=== PATIENT | female | born 1935 | race African-American/Black ===

== ENCOUNTER 2016-07-13 18:09 | Inpatient (IN) | payer MEDICARE, MEDICAID ==
[~2016-07-13] VITALS: Ht 157.5 cm; Wt 96.2 kg
[2016-07-13 18:55] LABS: BASOPHILS # (AUTO) 0.1 K/uL (0.0-0.2); BASOPHILS % (AUTO) 1.6 % (0.0-2.0); EOSINOPHILS # (AUTO) 0.1 K/uL (0.0-0.7); EOSINOPHILS % (AUTO) 2.5 % (0.0-7.0); HEMATOCRIT 36.2 % (37.0-47.0); HEMOGLOBIN 12.4 g/dL (12.0-16.0); LYMPHOCYTES # (AUTO) 1.4 K/uL (0.8-4.8); LYMPHOCYTES % (AUTO) 24.1 % (20.5-51.5); MEAN CORPUSCULAR HEMOGLOBIN 30.2 uug (27.0-31.0); MEAN CORPUSCULAR HGB CONC 34 g/dL (32.0-37.0); MEAN CORPUSCULAR VOLUME 88.2 fL (81.0-99.0); MONOCYTES # (AUTO) 0.3 K/uL (0.1-1.30); MONOCYTES % (AUTO) 5.8 % (0.0-11.0); PLATELET COUNT (AUTO) 235 K/uL (150-450); RED BLOOD CELL COUNT(AUTO) 4.11 MIL/uL (4.20-5.40); RED CELL DISTRIBUTION WIDTH 12.6 % (11.5-14.5); WHITE BLOOD COUNT (AUTO) 5.9 K/uL (4.0-11.2)
[2016-07-13] MEDS ORDERED: MELA3TAB PO (18:58)
[2016-07-13] MEDS ORDERED: LOSA25TA3 PO (18:58)
[2016-07-13] MEDS ORDERED: NITR0.4T SL (18:58)
[2016-07-13] MEDS ORDERED: DSS PO (18:58)
[2016-07-13] MEDS ORDERED: CALC500T13 PO (18:58)
[2016-07-13] MEDS ORDERED: ASPI81TA31 PO (18:58)
[2016-07-13] MEDS ORDERED: ACET325T53 PO (18:58)
[2016-07-13] MEDS ORDERED: MECL25TA3 PO (18:58)
[2016-07-13] MEDS ORDERED: GUAI474L3 PO (18:58)
[2016-07-13] MEDS ORDERED: FURO-151 PO (18:58)
[2016-07-13] MEDS ORDERED: TRAV5DRO OP (18:58)
[2016-07-13 19:04] LABS: *BILIRUBIN,URIN NEGATIVE (NEGATIVE); *BLOOD, URINE NEGATIVE (NEGATIVE); *CLARITY,URINE CLEAR (CLEAR); *COLOR,URINE LIGHT YELLOW (YELLOW); *KETONES,URINE NEGATIVE (NEGATIVE); *PROTEIN,URINE NEGATIVE (NEGATIVE); *UROBILINOGEN,URINE 0.2 E.U./dl (NORMAL); LEUKOCYTE ESTERASE ,URINE NEGATIVE (NEGATIVE); NITRITE, URINE NEGATIVE (NEGATIVE); UGLUCOSE NEGATIVE (NEGATIVE)
[2016-07-13 19:09] LABS: SQUAMOUS EPITHELIAL CELL,UR FEW /HPF (NONE SEEN); WBC,URINE 0-3 /HPF (0-3)
[2016-07-13 19:21] LABS: *AMPHETAMINE, URINE NEGATIVE (NEGATIVE); *BARBITURATE, URINE NEGATIVE (NEGATIVE); *CANNABINOID, URINE NEGATIVE (NEGATIVE); *COCCAINE, URINE NEGATIVE (NEGATIVE); *OPIATE, URINE NEGATIVE (NEGATIVE); *PHENCYCLIDINE SCREEN,URINE NEGATIVE (NEGATIVE)
[2016-07-13 19:28] LABS: ETHANOL < 3 MG/DL (0-0)
[2016-07-13 19:30] LABS: CALCIUM 9.6 mg/dL (8.5-10.1); CARBON DIOXIDE 32 mmol/L (21-32); CHLORIDE 102 mmol/L (98-107); CREATININE 1.1 mg/dL (0.6-1.3); GLUCOSE 99 mg/dL (74-106); POTASSIUM 5.1 mmol/L (3.5-5.1); SODIUM SERUM 139 mmol/L (136-145); UREA NITROGEN, BLOOD 21 mg/dL (7-18)
[2016-07-13 19:37] LABS: ALANINE AMINOTRANSFERASE 15 U/L (14-59); ALBUMIN 3.5 g/dL (3.4-5.0); ALKALINE PHOSPHATASE 108 U/L (50-136); ASPARTATE AMINOTRANSFERASE 18 U/L (15-37); BILIRUBIN,DIRECT 0.1 mg/dL (0.0-0.2); BILIRUBIN,TOTAL 0.3 mg/dL (0.2-1.0); TOTAL PROTEIN, SERUM 7.7 g/dL (6.4-8.2)
[2016-07-13 19:38] LABS: ACETAMINOPHEN < 2.0 ug/mL (10-30)
--- NOTE | 2016-07-13 20:48 | NUR ---
Pt. admitted to [facility], under care of Dr. Alvarenga Belongs List completed
[2016-07-13 21:05] VITALS: BP 135/53
[2016-07-13] MEDS ORDERED: MAG HYDROX/AL HYDROX/SIMETH 30 ML LIQUID UDC PO PRN (22:00)
[2016-07-13] MEDS ORDERED: MAGNESIUM HYDROXIDE 30 ML LIQUID UDC PO PRN (22:00)
[2016-07-13] MEDS ORDERED: LORAZEPAM 0.5 MG TABLET PO PRN (22:00)
[2016-07-13] MEDS ORDERED: TEMAZEPAM 7.5 MG CAPSULE ONE (22:22)
--- NOTE | 2016-07-13 23:00 | NUR ---
received to care, from the emergency room, on a 5150 for gravely disabled, resident of [facility], where she was reportedly paranoid of staff, believing that a nurse put "white powder" in her closet, that her water was tainted or poisoned, that a male nurse put his finger in her anus, that her daughter and grandaughter are trying to kill her. she has also been hoarding her belongings next to her, and suspicous of other residents stealing from her.upon arrival on the unit, she was very cooperative. denies any paranoia, or psychotic symptoms. currently up in pb chair at nurses station, eating a snack.
--- NOTE | 2016-07-13 23:10 | NUR ---
assisted to bed.
[2016-07-13] MEDS: TEMAZEPAM 7.5 MG CAPSULE PO PRN (23:18)
--- NOTE | 2016-07-13 23:18 | NUR ---
PRN restoril given for insomnia
--- NOTE | 2016-07-13 23:45 | NUR ---
appears to be asleep. no distress noted.
--- NOTE | 2016-07-14 06:00 | NUR ---
slept 6.0 hours, total. assisted with AM care, and shower. no distress noted.
[2016-07-14 08:00] VITALS: BP 146/71
--- NOTE | 2016-07-14 10:30 | NUR ---
NOTIFIED DR RIVERA THAT MEDS NEED TO BE RECONCILED.
--- NOTE | 2016-07-14 11:31 | NUR ---
Initial discharge instructions:The patient resides at [facility] [[address]; [place] [address]].Per patient,she would like to return to [facility] upon discharge.SW spoke to [facility] Core Stripper [Samantha, ] and was told that the patient would be allowed to return.Patient denied consent for family members to be contacted at this time.DAMARIS will speak to MD,patient,and family regarding most appropriate discharge plan.DAMARIS will form a safe and proper discharge plan.
[2016-07-14 15:38] VITALS: BP 154/61
--- NOTE | 2016-07-14 16:35 | NUR ---
REQUESTED AGAIN FOR DR YEE TO RECONCILE MEDS
[2016-07-14] MEDS ORDERED: DSS PO SCH (17:00)
[2016-07-14] MEDS: LOSARTAN POTASSIUM 25 MG TABLET PO SCH (18:03)
[2016-07-14] MEDS: FUROSEMIDE 40 MG TABLET PO SCH (18:03)
[2016-07-14] MEDS: DOCUSATE SODIUM 100 MG CAPSULE PO SCH (20:26)
[2016-07-14] MEDS: risperiDONE 0.25 MG TABLET PO SCH (20:26)
[2016-07-14] MEDS: LATANOPROST OPHT DROP 2.5 ML BOTTLE EACHEYE SCH (20:27)
[2016-07-14 20:31] VITALS: BP 144/70
[2016-07-14] MEDS ORDERED: QUETIAPINE FUMARATE 25 MG TABLET PO SCH (21:00)
--- NOTE | 2016-07-14 22:00 | NUR ---
received to care, isolating in room by self. pleasant upon approach. compliant with medications and staff direction. states that her family wants to "kill" her, but she feels safe, here. as of 2199, she is awake, in bed. no distress noted. will continue to monitor closely.
[2016-07-14] MEDS: TEMAZEPAM 7.5 MG CAPSULE PO PRN (23:42)
--- NOTE | 2016-07-14 23:42 | NUR ---
PRN restoril was given, for insomnia.
--- NOTE | 2016-07-15 00:15 | NUR ---
appears to be asleep. no distress noted.
--- NOTE | 2016-07-15 06:00 | NUR ---
slept 5.5 hours
[2016-07-15 07:30] VITALS: BP 106/56
[2016-07-15] MEDS: LOSARTAN POTASSIUM 25 MG TABLET PO SCH (09:00)
[2016-07-15] MEDS: FUROSEMIDE 40 MG TABLET PO SCH (09:18)
[2016-07-15] MEDS: ASPIRIN 81 MG TAB.CHEW PO SCH (09:18)
[2016-07-15] MEDS: DOCUSATE SODIUM 100 MG CAPSULE PO SCH ×2 (09:18→21:12)
[2016-07-15 15:13] VITALS: BP 119/52
[2016-07-15 20:33] VITALS: BP 120/67
[2016-07-15] MEDS: ATORVASTATIN 10 MG TABLET PO SCH (21:11)
[2016-07-15] MEDS: LATANOPROST OPHT DROP 2.5 ML BOTTLE EACHEYE SCH (21:12)
[2016-07-15] MEDS: TEMAZEPAM 7.5 MG CAPSULE PO PRN (21:12)
[2016-07-15] MEDS: risperiDONE 0.25 MG TABLET PO SCH (21:12)
[2016-07-16 07:30] VITALS: BP 124/66
[2016-07-16 08:31] LABS: ALBUMIN 3.5 g/dL (3.4-5.0); BILIRUBIN,TOTAL 0.4 mg/dL (0.2-1.0); CALCIUM 9.2 mg/dL (8.5-10.1); MAGNESIUM 2.2 mg/dL (1.8-2.4); PHOSPHOROUS 3.6 mg/dL (2.5-4.9); POTASSIUM 4.3 mmol/L (3.5-5.1); TOTAL PROTEIN, SERUM 7.6 g/dL (6.4-8.2)
[2016-07-16 08:46] LABS: EOSINOPHILS # (AUTO) 0.2 K/uL (0.0-0.7); EOSINOPHILS % (AUTO) 3.9 % (0.0-7.0); HEMATOCRIT 38.1 % (37.0-47.0); HEMOGLOBIN 12.7 g/dL (12.0-16.0); LYMPHOCYTES # (AUTO) 1.6 K/uL (0.8-4.8); LYMPHOCYTES % (AUTO) 30.3 % (20.5-51.5); MEAN CORPUSCULAR HEMOGLOBIN 29.9 uug (27.0-31.0); MEAN CORPUSCULAR HGB CONC 33 g/dL (32.0-37.0); MEAN CORPUSCULAR VOLUME 89.8 fL (81.0-99.0); MONOCYTES # (AUTO) 0.3 K/uL (0.1-1.30); MONOCYTES % (AUTO) 6.4 % (0.0-11.0); NEUTROPHILS # (AUTO) 3.3 K/uL (1.8-8.9); NEUTROPHILS % (AUTO) 59.4 % (38.5-71.5); PLATELET COUNT (AUTO) 251 K/uL (150-450); RED BLOOD CELL COUNT(AUTO) 4.24 MIL/uL (4.20-5.40); RED CELL DISTRIBUTION WIDTH 12.6 % (11.5-14.5); WHITE BLOOD COUNT (AUTO) 5.4 K/uL (4.0-11.2)
[2016-07-16] MEDS: LOSARTAN POTASSIUM 25 MG TABLET PO SCH (09:29)
[2016-07-16] MEDS: FUROSEMIDE 40 MG TABLET PO SCH (09:29)
[2016-07-16] MEDS: DOCUSATE SODIUM 100 MG CAPSULE PO SCH ×2 (09:29→20:19)
[2016-07-16] MEDS: ASPIRIN 81 MG TAB.CHEW PO SCH (09:29)
[2016-07-16 09:34] LABS: THYROID STIMULATING HORMONE 3.003 mIU/mL (0.358-3.740)
[2016-07-16 15:44] VITALS: BP 105/48
[2016-07-16 19:57] VITALS: BP 140/57
[2016-07-16] MEDS: LATANOPROST OPHT DROP 2.5 ML BOTTLE EACHEYE SCH (20:19)
[2016-07-16] MEDS: ACETAMINOPHEN 325 MG TABLET PO PRN (20:19)
[2016-07-16] MEDS: ATORVASTATIN 10 MG TABLET PO SCH (20:19)
[2016-07-16] MEDS: risperiDONE 0.25 MG TABLET PO SCH (20:19)
--- NOTE | 2016-07-16 20:21 | NUR ---
[facility]: PATIENT C/O GEN: PAIN.TYLENOL 650 MG PO GIVEN.
--- NOTE | 2016-07-16 21:21 | NUR ---
[facility]: PATIENT STATED I AM FEELING BETTER NOW. PRN EFFECTIVE FOR PAIN.
--- NOTE | 2016-07-17 06:31 | NUR ---
[facility]: REMAIN CALM AND COOPERATIVE WITH MEDS AND CARE. SLEPT 6 HRS THROUGH THE NIGHT. BLOOD SUGAR 96 MG/DL THIS AM.CONTINUE PLAN OF CARE.
[2016-07-17] MEDS ORDERED: BLOOD SUGAR DIAGNOSTIC 1 EACH STRIP VI SCH ×4 (07:00→09:00)
[2016-07-17 07:57] VITALS: BP 126/60
[2016-07-17] MEDS: LOSARTAN POTASSIUM 25 MG TABLET PO SCH (08:42)
[2016-07-17] MEDS: ASPIRIN 81 MG TAB.CHEW PO SCH (08:42)
[2016-07-17] MEDS: FUROSEMIDE 40 MG TABLET PO SCH (08:42)
[2016-07-17] MEDS: DOCUSATE SODIUM 100 MG CAPSULE PO SCH ×2 (08:43→20:15)
[2016-07-17 15:22] VITALS: BP 118/57
[2016-07-17] MEDS: risperiDONE 0.25 MG TABLET PO SCH (20:15)
[2016-07-17] MEDS: ATORVASTATIN 10 MG TABLET PO SCH (20:15)
[2016-07-17 20:21] VITALS: BP 117/51
[2016-07-17] MEDS: LATANOPROST OPHT DROP 2.5 ML BOTTLE EACHEYE SCH (20:38)
--- NOTE | 2016-07-17 22:00 | NUR ---
received to care, isolating in room by self. pleasant upon approach. compliant with medications and staff direction. interacts well with her room mate, only. as of 2199, she is in bed. appears to be asleep. no distress noted. will continue to monitor closely.
--- NOTE | 2016-07-18 06:00 | NUR ---
slept 7.5 hours
[2016-07-18 07:58] VITALS: BP 119/49
[2016-07-18] MEDS: DOCUSATE SODIUM 100 MG CAPSULE PO SCH ×2 (08:11→20:00)
[2016-07-18] MEDS: LOSARTAN POTASSIUM 25 MG TABLET PO SCH (08:11)
[2016-07-18] MEDS: FUROSEMIDE 40 MG TABLET PO SCH (08:11)
[2016-07-18] MEDS: ASPIRIN 81 MG TAB.CHEW PO SCH (08:11)
[2016-07-18 15:38] VITALS: BP 112/56
[2016-07-18 20:00] VITALS: BP 130/59
[2016-07-18] MEDS: risperiDONE 0.25 MG TABLET PO SCH (20:00)
[2016-07-18] MEDS: ATORVASTATIN 10 MG TABLET PO SCH (20:00)
[2016-07-18] MEDS: LATANOPROST OPHT DROP 2.5 ML BOTTLE EACHEYE SCH (20:00)
[2016-07-18] MEDS: TEMAZEPAM 7.5 MG CAPSULE PO PRN (21:59)
--- NOTE | 2016-07-18 22:00 | NUR ---
received to care, isolative, sitting in her room, pleasant upon approach. compliant with medications and staff direction. PRN restoril was given at 2158. as of 2199, she remains awake, no distress noted. will continue to monitor closely.
--- NOTE | 2016-07-18 23:00 | NUR ---
appears to be asleep. no distress noted.
--- NOTE | 2016-07-18 23:20 | NUR ---
See documentation in paper. Addendum: 07/18/16 at 2321 by GALINA ERICKSON RN Amended: Links added.
--- NOTE | 2016-07-19 06:00 | NUR ---
slept 8.5 hours.
[2016-07-19 07:30] VITALS: BP 125/63
[2016-07-19] MEDS: LOSARTAN POTASSIUM 25 MG TABLET PO SCH (08:05)
[2016-07-19] MEDS: ASPIRIN 81 MG TAB.CHEW PO SCH (08:05)
[2016-07-19] MEDS: DOCUSATE SODIUM 100 MG CAPSULE PO SCH ×2 (08:05→20:11)
[2016-07-19] MEDS: FUROSEMIDE 40 MG TABLET PO SCH (08:05)
--- NOTE | 2016-07-19 14:18 | NUR ---
WEEKLY MEETING PO INTAKE GOOD, 75-100% ON CARDIAC DIET, NO DIET RECOMMENDATIONS AT THIS TIME LAST BM 07/18, BOWEL SOUNDS PRESENT SKIN INTACT, NOTED 2+ PITTING EDEMA, NO NOTED WEIGHT CHANGES ELEVATED LIPID LABS, RECOMMEND FISH OIL NUTRITION DIAGNOSIS: ALTERED NUTRITION RELATED LABS RELATED TO CLINICAL CONDITION EVIDENCED BY HIGH LIPID LABS MONITOR LABS, WEIGHT, PO INTAKE Addendum: 07/19/16 at [address] Amended: Links added.
[2016-07-19 16:00] VITALS: BP 102/48
[2016-07-19 20:00] VITALS: BP 122/53
[2016-07-19] MEDS: risperiDONE 0.25 MG TABLET PO SCH (20:11)
[2016-07-19] MEDS: LATANOPROST OPHT DROP 2.5 ML BOTTLE EACHEYE SCH (20:11)
[2016-07-19] MEDS: ATORVASTATIN 20 MG TABLET PO SCH (20:14)
[2016-07-19] MEDS: ACETAMINOPHEN 325 MG TABLET PO PRN (20:33)
[2016-07-19] MEDS ORDERED: ATORVASTATIN 10 MG TABLET PO SCH (21:00)
--- NOTE | 2016-07-19 22:00 | NUR ---
received to care, sitting in her room, isolative, but pleasant upon approach. compliant with medications and staff direction. as of 2199, she remains awake. no distress noted. will continue to monitor closely.
[2016-07-19] MEDS: TEMAZEPAM 7.5 MG CAPSULE PO PRN (23:14)
--- NOTE | 2016-07-19 23:14 | NUR ---
PRN restoril was given, for insomnia.
--- NOTE | 2016-07-20 | NUR ---
appears to be asleep. no distress noted. will continue to monitor closely.
[2016-07-20] MEDS: ACETAMINOPHEN 325 MG TABLET PO PRN (04:14)
--- NOTE | 2016-07-20 06:30 | NUR ---
slept 7,5 hours. assisted with AM care, and shower. no distress noted.
[2016-07-20 07:30] VITALS: BP 122/60
--- NOTE | 2016-07-20 07:53 | NUR ---
DC Note: The Patient will be discharged today to [facility] [[address] [place] [address]; ] via ambulance at 12:00 pm. Please schedule an ambulance for the patient. Patient is aware and agreeable with discharge plans. Spoke with Kelle at the facility who stated she would accept the patient today. Patient will follow-up with (Psychiatrist) and (Hydrogen Operator) at the facility. Addendum: 07/20/16 at 0825 by VISH OCAMPO Discharge is cancelled for today. Patient will be discharged tomorrow 07/21/16.
[2016-07-20] MEDS: LOSARTAN POTASSIUM 25 MG TABLET PO SCH (09:50)
[2016-07-20] MEDS: ASPIRIN 81 MG TAB.CHEW PO SCH (09:50)
[2016-07-20] MEDS: FUROSEMIDE 40 MG TABLET PO SCH (09:51)
[2016-07-20] MEDS: DOCUSATE SODIUM 100 MG CAPSULE PO SCH ×2 (09:51→22:02)
[2016-07-20 16:00] VITALS: BP 140/55
[2016-07-20 20:00] VITALS: BP 122/56
[2016-07-20] MEDS: LATANOPROST OPHT DROP 2.5 ML BOTTLE EACHEYE SCH (22:02)
[2016-07-20] MEDS: ATORVASTATIN 20 MG TABLET PO SCH (22:02)
[2016-07-20] MEDS: risperiDONE 0.25 MG TABLET PO SCH (22:02)
[2016-07-21 07:30] VITALS: BP 95/54
--- NOTE | 2016-07-21 08:22 | NUR ---
DC Note: The Patient will be discharged today to [facility] [[address] [place] [address]; ] via ambulance at 12:00 pm. Please schedule an ambulance for the patient. Patient is aware and agreeable with discharge plans. Spoke with Kelle at the facility who stated she would accept the patient today. Patient will follow-up with (Psychiatrist) and (Computer Numeric Control Setter) at the facility.
[2016-07-21] MEDS: DOCUSATE SODIUM 100 MG CAPSULE PO SCH (09:42)
[2016-07-21] MEDS: ASPIRIN 81 MG TAB.CHEW PO SCH (09:42)
[2016-07-21] MEDS: LOSARTAN POTASSIUM 25 MG TABLET PO SCH ×2 (09:46→13:30)
[2016-07-21] MEDS: FUROSEMIDE 40 MG TABLET PO SCH ×2 (09:47→13:29)
--- NOTE | 2016-07-21 13:15 | NUR ---
patientdischarged to [facility] via ambulance in no acute distress
[2016-07-21 13:30] VITALS: BP 160/63
== END 2016-07-21 13:15 | DRG 885 ==
LOC: ER 18:11 → GPS 20:54
PROVIDERS: ADMIT Psychiatry & Neurology Psychiatry; ATTEND Internal Medicine
DX: F29 Unspecified psychosis not due to a substance or known physiological condition (principal); I11.0 Hypertensive heart disease with heart failure; F03.91 Unspecified dementia, unspecified severity, with behavioral disturbance; D68.59 Other primary thrombophilia; I73.9 Peripheral vascular disease, unspecified; Z74.09 Other reduced mobility; E66.9 Obesity, unspecified; Z68.38 Body mass index [BMI] 38.0-38.9, adult; I50.9 Heart failure, unspecified; R60.0 Localized edema; Z79.899 Other long term (current) drug therapy; Z66 Do not resuscitate; Z79.82 Long term (current) use of aspirin; H40.9 Unspecified glaucoma; H26.9 Unspecified cataract; E78.5 Hyperlipidemia, unspecified; R73.9 Hyperglycemia, unspecified; R26.2 Difficulty in walking, not elsewhere classified
CPT/HCPCS: 36415; 71010; 80307; 83735; 84100; 84443; 85025; 93005; 97001; A4663; G0480-TC; G6040-TC